=== PATIENT | female | born 1985 | race African-American/Black ===

== ENCOUNTER 2021-06-28 09:10 | Emergency (ER) | payer BC ==
[~2021-06-28] VITALS: Ht 170.2 cm; Wt 81.6 kg
[2021-06-28 09:33] VITALS: BP_SYST 109
--- NOTE | 2021-06-28 09:33 | NUR ---
Patient to ER bed 2 to gown for evaluation. Side rails up.
--- NOTE | 2021-06-28 10:10 | NUR ---
36 YO BIB SELF C/O DIZZY X 1 DAY ON MONITOR NSR NO ECTOPY VSS
--- NOTE | 2021-06-28 10:33 | NUR ---
ACCU CHECK MACHINE IN LAB FOR CLEANING
[2021-06-28 10:36] LABS: RED BLOOD CELL COUNT(AUTO) 4.35 MIL/uL (4.2-6.2); WHITE BLOOD COUNT (AUTO) 7.3 K/uL (4.8-10.8)
[2021-06-28 10:37] LABS: BASOPHILS % (AUTO) 0.5 % (0.0-2.0); EOSINOPHILS % (AUTO) 0.2 % (0.0-4.0); HEMATOCRIT 37.3 % (36-48); HEMOGLOBIN 12.4 g/dL (12.0-16.0); LYMPHOCYTES # (AUTO) 4.6 K/uL (1.0-5.5); LYMPHOCYTES % (AUTO) 62.3 % (20.5-51.5); MEAN CORPUSCULAR HEMOGLOBIN 28 pg (27-31); MEAN CORPUSCULAR HGB CONC 33 % (32-36); MEAN CORPUSCULAR VOLUME 86 fL (79.0-98.0); MONOCYTES # (AUTO) 0.8 K/uL (0.0-1.0); MONOCYTES % (AUTO) 10.9 % (1.7-9.3); NEUTROPHILS # (AUTO) 1.9 K/uL (1.8-7.7); NEUTROPHILS % (AUTO) 26.1 % (40.0-70.0); PLATELET COUNT (AUTO) 154 K/uL (130-430); RED CELL DISTRIBUTION WIDTH 14.2 % (9.0-15.0)
[2021-06-28 10:40] LABS: CALCIUM 8.6 mg/dL (8.4-11.0); CREATININE 0.77 mg/dL (0.55-1.30); POTASSIUM 3.9 mmol/L (3.5-5.1)
[2021-06-28 10:45] LABS: ALBUMIN 3.2 g/dL (3.4-4.8); TOTAL BILIRUBIN 0.4 mg/dL (0.0-1.0)
[2021-06-28 11:34] VITALS: BP_SYST 100
== END 2021-06-28 11:34 | disposition home or self-care (01) ==
LOC: SED 09:10
DX: R42 Dizziness and giddiness (principal); Z88.1 Allergy status to other antibiotic agents
CPT/HCPCS: 36415; 80053; 81002; 81025; 82962; 85025; 93005; 99284